=== PATIENT | male | born 1970 | race Hispanic/Latino ===

== ENCOUNTER 2017-02-15 09:00 | Emergency (ER) | payer OTHER, BC ==
[2017-02-15 09:06] VITALS: RESP 18; O2SAT 100
--- NOTE | 2017-02-15 10:18 | RAD ---
PROCEDURE: Radiographs of the Left Shoulder HISTORY: r/o fx COMPARISON: None available. FINDINGS: BONES: No acute displaced fracture. The distal clavicle and underlying ribs appear intact. JOINTS: No acute dislocation. SOFT TISSUES: Soft tissues appear unremarkable. No evidence of radiopaque foreign body. IMPRESSION: No acute displaced fracture or dislocation evident. If symptoms persist or if there is continued clinical concern, x-ray follow-up in 7-10 days should be considered.
[2017-02-15 11:02] VITALS: BP 124/84; PULSE 82; TEMP 98.1
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
== END 2017-02-15 11:02 | disposition home or self-care (01) ==
LOC: C.ER 09:00
DX: M54.6 Pain in thoracic spine (principal)